=== PATIENT | male | born 1985 | race Caucasian/White ===

== ENCOUNTER 2017-03-20 19:13 | Emergency (ER) | payer MEDICAID | END 2017-03-20 19:15 | disposition home or self-care (01) | LOC: CFTX 19:13 | DX: L03.113 Cellulitis of right upper limb (principal); F17.210 Nicotine dependence, cigarettes, uncomplicated; Z88.5 Allergy status to narcotic agent | CPT/HCPCS: 99282 ==

== ENCOUNTER 2017-03-25 21:39 | Emergency (ER) | payer MEDICAID | END 2017-03-25 21:50 | disposition home or self-care (01) | LOC: CED 21:39 | DX: L02.413 Cutaneous abscess of right upper limb (principal); F17.200 Nicotine dependence, unspecified, uncomplicated; Z88.5 Allergy status to narcotic agent | CPT/HCPCS: 87070; 96372; 99283 ==